=== PATIENT | female | born 1945 | race Caucasian/White ===

== ENCOUNTER 2020-08-03 18:11 | Emergency (ER) | payer OTHER, MEDICAID ==
[~2020-08-03] VITALS: Ht 154.9 cm; Wt 68.0 kg
[2020-08-03 18:15] VITALS: BP 162/76
--- NOTE | 2020-08-03 18:25 | NUR ---
Patient to bed 6. RN evaluating the patient at bedside.
--- NOTE | 2020-08-03 18:50 | NUR ---
75 FEMALE C/O CHEST PAIN AND SOB X3 DAYS. STATES "FEELS PRESSURE AND UNABLE TO TAKE DEEP BREATHE." PATIENT STATES CHEST PAIN STARTED IN BACK, BUT HAS RESOLVED TO JUST CHEST AREA. PMH: HYPOTHYROIDISM, HIGH CHOLESTEROL NKDA
--- NOTE | 2020-08-03 19:03 | NUR ---
Dr. Ellis is evaluating the patient at bedside.
--- NOTE | 2020-08-03 19:20 | NUR ---
REPORT GIVEN TO LALIT HARDING. TRANSFER OF CARE GIVEN
[2020-08-03 19:21] LABS: BASOPHILS % (AUTO) 0.8 % (0.0-2.0); EOSINOPHILS # (AUTO) 0.1 K/uL (0-0.4); EOSINOPHILS % (AUTO) 1.5 % (0.0-4.0); HEMATOCRIT 37.1 % (36-48); HEMOGLOBIN 12.4 g/dL (12.0-16.0); LYMPHOCYTES # (AUTO) 1.7 K/uL (2.5-16.5); LYMPHOCYTES % (AUTO) 28.9 % (20.5-51.1); MEAN CORPUSCULAR HEMOGLOBIN 29 pg (27-31); MEAN CORPUSCULAR HGB CONC 33 g/dL (33-37); MONOCYTES # (AUTO) 0.7 K/uL (0.8-1.0); MONOCYTES % (AUTO) 11.7 % (1.7-9.3); NEUTROPHILS # (AUTO) 3.3 K/uL (1.8-7.7); NEUTROPHILS % (AUTO) 57.1 % (42.2-75.2); PLATELET COUNT (AUTO) 296 K/uL (140-450); RED BLOOD CELL COUNT(AUTO) 4.27 MIL/uL (4.20-5.40); RED CELL DISTRIBUTION WIDTH 14.2 % (11.6-13.7); WHITE BLOOD COUNT (AUTO) 5.7 K/uL (4.8-10.8)
[2020-08-03 19:32] LABS: ALBUMIN 3.8 g/dL (3.4-5.0); ANION GAP 16.7 (8-16); ASPARTATE AMINOTRANSFERASE 30 U/L (15-37); CARBON DIOXIDE 21.7 mmol/L (21-32); CHLORIDE 100 mmol/L (98-107); CREATININE 0.8 mg/dL (0.6-1.3); GLUCOSE 121 mg/dL (74-106); POTASSIUM 4.4 mmol/L (3.5-5.1); SODIUM SERUM 134 mmol/L (136-145); TOTAL BILIRUBIN 0.4 mg/dL (0.0-1.0); UREA NITROGEN, BLOOD 11 mg/dL (7-18)
--- NOTE | 2020-08-03 19:45 | NUR ---
PT. LAYING COMFORTABLY IN BED WITH GRANDSON AT BEDSIDE. VOICES NO COMPLAINTS.
[2020-08-03] MEDS ORDERED: ACET-2619 PO (20:02)
[2020-08-03 20:20] VITALS: BP 162/76
== END 2020-08-03 20:20 | disposition home or self-care (01) ==
LOC: MED 18:11
DX: R07.9 Chest pain, unspecified (principal); E07.9 Disorder of thyroid, unspecified; E78.00 Pure hypercholesterolemia, unspecified
CPT/HCPCS: 36415; 71045; 80053; 83880; 84484; 85025; 93005; 99285